=== PATIENT | female | born 1935 | race Caucasian/White ===

== ENCOUNTER 2020-11-19 12:15 | Outpatient (CLI) | payer MEDICARE, OTHER | END 2020-11-19 12:16 | disposition home or self-care (01) | LOC: BURRAD 12:15 | PROVIDERS: ATTEND Family Medicine | DX: S52.501G Unspecified fracture of the lower end of right radius, subsequent encounter for closed fracture with delayed healing (principal) ==

== ENCOUNTER 2022-01-12 18:17 | Emergency (ER) | payer MEDICARE, OTHER ==
[2022-01-12] MEDS ORDERED: HYDROcodone/Acetaminophen 5/325 mg Tablet ONE (19:04)
== END 2022-01-12 19:28 | disposition home or self-care (01) ==
LOC: BURERS 18:17
DX: S90.01XA Contusion of right ankle, initial encounter (principal); S90.31XA Contusion of right foot, initial encounter; X50.1XXA Overexertion from prolonged static or awkward postures, initial encounter